=== PATIENT | female | born 1985 | race Caucasian/White ===

== ENCOUNTER 2016-09-08 13:59 | Emergency (ER) | payer BC, OTHER ==
--- NOTE | 2016-09-08 14:57 | ERPHSYRPT ---
- History of Present Illness Time Seen by Provider: 09/08/16 14:49 Historian: patient Exam Limitations: no limitations Patient Subjective Stated Complaint: PT REPORTS LEFT LOWER ABD PAIN BEGINNING FRIDAY-DENIES N/V/D-REPORTS LAST BM THIS MORNING WITH NO DIFFICULTY-DENIES DIFFICULTY WITH URINATION Triage Nursing Assessment: PT PINK WARM ET DRY-ABD SOFT ET TENDER TO PALP-NO REBOUND TENDERNESS NOTED Physician History: The patient is a 31-year-old female with her complaining of left-sided abdominal pain for 2 days. It has become worse. Last night at work it was significantly painful. She denies nausea vomiting or diarrhea. She has a history of constipation with an episode only a few days ago. Her last menstrual period was last week. She consumes alcoholic beverages on an occasional session. Her last consumption was New Year's jeevan. She did not try Tylenol or ibuprofen for the pain. 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 Her past surgical history is significant for cholecystectomy and 2 C-sections. Timing/Duration: day(s) (2) Activities at Onset: none Quality: throbbing Abdominal Pain Onset Location: LLQ, flank Pain Radiation: no radiation Severity of Pain-Max: moderate Severity of Pain-Current: moderate Modifying Factors: Improves With: nothing Associated Symptoms: denies symptoms Previous symptoms: no prior history Allergies/Adverse Reactions: No Known Drug Allergies Allergy (Verified 03/18/16 18:42) Home Medications: Levothyroxine Sodium 50 Mcg [Synthroid 50 Mcg] 50 mcg PO DAILY 04/20/14 [ History] Lisinopril 10 mg [Zestril 10 MG] 20 mg PO DAILY 04/20/14 [History] Vortioxetine Hydrobromide [Brintellix] 5 mg PO DAILY 06/17/15 [History] Lurasidone HCl [Latuda] 40 mg PO DAILY 03/18/16 [History] Hx Tetanus, Diphtheria Vaccination/Date Given: Yes Hx Influenza Vaccination/Date Given: No Hx Pneumococcal Vaccination/Date Given: No Immunizations Up to Date: Yes - Review of Systems Constitutional: No Fever, No Chills Eyes: No Symptoms Ears, Nose, & Throat: No Symptoms Respiratory: No Cough, No Dyspnea Cardiac: No Chest Pain, No Edema, No Syncope Abdominal/Gastrointestinal: Abdominal Pain, Constipation, No Nausea, No Vomiting , No Diarrhea Genitourinary Symptoms: No Dysuria Musculoskeletal: No Back Pain, No Neck Pain Skin: No Rash Neurological: No Dizziness, No Focal Weakness, No Sensory Changes Psychological: No Symptoms Endocrine: No Symptoms Hematologic/Lymphatic: No Symptoms Immunological/Allergic: No Symptoms All Other Systems: Reviewed and Negative - Past Medical History Pertinent Past Medical History: Yes Neurological History: Migraines, Seizures ENT History: No Pertinent History Cardiac History: Hypertension Respiratory History: No Pertinent History Endocrine Medical History: Hypothyroidism Musculoskeletal History: No Pertinent History GI Medical History: No Pertinent History History: No Pertinent History Psycho-Social History: Depression Female Reproductive Disorders: No Pertinent History Other Medical History: attempt suicide x 2 with in pt. stays at [facility]. last seizure 18mos ago related to drug overdose. is not on anti seizure meds - Past Surgical History Past Surgical History: Yes Neuro Surgical History: No Pertinent History Cardiac: No Pertinent History Respiratory: No Pertinent History Gastrointestinal: Cholecystectomy Genitourinary: No Pertinent History Musculoskeletal: No Pertinent History Female Surgical History: Section, Tubal Ligation Other Surgical History: x two - Social History Smoking Status: Current every day smoker How long have you smoked: YRS Exposure to second hand smoke: No Alcohol Use: Socially Drug Use: none Patient Lives Alone: No Significant Family History: no pertinent family hx - Female History Hx Last Menstrual Period: LAST WEEK Hx Now: No - Nursing Vital Signs Nursing Vital Signs: Initial Vital Signs Pulse Rate 62 Respiratory Rate 16 Blood Pressure 128/67 Pain Intensity 3 - Physical Exam General Appearance: no apparent distress, alert Eye Exam: PERRL/EOMI, eyes nml inspection Ears, Nose, Throat Exam: normal ENT inspection, pharynx normal, moist mucous membranes Neck Exam: normal inspection, non-tender, supple, full range of motion Respiratory Exam: normal breath sounds, lungs clear, No respiratory distress Cardiovascular Exam: regular rate/rhythm, normal heart sounds Gastrointestinal/Abdomen Exam: tenderness (left side), No mass Pelvic Exam: not done Rectal Exam: not done Back Exam: normal inspection, normal range of motion, No CVA tenderness, No vertebral tenderness Extremity Exam: normal inspection, normal range of motion, pelvis stable Neurologic Exam: alert, oriented x 3, cooperative, normal mood/affect, nml cerebellar function, sensation nml, No motor deficits Skin Exam: normal color, warm, dry SpO2 Interpretation: normal SpO2: 98 Oxygen Delivery: Room Air - Radiology Exams Abdomen X-ray Interpretation: Interpreted by me, Other (increased fecal load) Ordered Tests: Active Orders 24 hr Category Date Time Status IV Insertion STAT Care 09/08/16 15:01 Active KUB Stat Exams 09/08/16 15:02 Taken CBC W DIFF Stat Lab 09/08/16 15:25 Completed CMP Stat Lab 09/08/16 15:25 Completed HCG QUALITATIVE,SERUM Stat Lab 09/08/16 15:25 Completed LIPASE Stat Lab 09/08/16 15:25 Completed UA W/ MICROSCOPIC Stat Lab 09/08/16 15:25 Completed Medication Summary Discontinued Medications Generic Name Dose Route Start Last Admin Trade Name Freq PRN Reason Stop Dose Admin Sodium Chloride 1,000 mls @ 999 mls/hr 09/08/16 15:01 09/08/16 15:19 Sodium Chloride 0.9% 1000 Ml IV 09/08/16 16:01 999 mls/hr .Q1H1M STA Administration Sodium Chloride Confirm 09/08/16 15:09 Sodium Chloride 0.9% 1000 Ml Administered 09/08/16 15:10 Dose 1,000 mls @ ud .ROUTE .STK-MED ONE Ketorolac Tromethamine 30 mg 09/08/16 15:01 09/08/16 15:19 Toradol 30 Mg Injection IV 09/08/16 15:02 30 mg STAT ONE Administration Ketorolac Tromethamine Confirm 09/08/16 15:09 Toradol 30 Mg Injection Administered 09/08/16 15:10 Dose 30 mg .ROUTE .STK-MED ONE Lab/Rad Data: Laboratory Result Diagrams 09/08/16 15:25 09/08/16 15:25 Laboratory Results 09/08/16 09/08/16 09/08/16 Range/Units 15:25 15:25 15:25 WBC (4.0-10.5) K/mm3 RBC (4.1-5.4) M/mm3 Hgb (12.0-16.0) gm/dl Hct (35-47) % MCV (78-100) fl MCH (26-32) pg MCHC (32-36) g/dl RDW (11.5-14.0) % Plt Count (150-450) K/mm3 MPV (6-9.5) fl Gran % (36.0-66.0) % Lymphocytes % (24.0-44.0) % Monocytes % (0.0-12.0) % Eosinophils % (0.00-5.0) % Basophils % (0.0-0.4) % Basophils # (0-0.4) Sodium 145 (136-145) mEq/L Potassium 3.4 L (3.5-5.1) mEq/L Chloride 107 (98-107) mEq/L Carbon Dioxide 29.7 (21-32) mEq/L Anion Gap 11.3 (5-15) MEQ/L BUN 14 (9-20) mg/dL Creatinine 0.89 (0.55-1.30) mg/dl Estimated GFR > 60 ML/MIN Glucose 76 (70-110) MG/DL Calcium 8.8 (8.5-10.1) mg/dL Total Bilirubin 0.4 (0.2-1.0) mg/dL AST 12 L (15-37) U/L ALT 17 (12-78) U/L Alkaline Phosphatase 86 (46-116) U/L Serum Total Protein 7.2 (6.4-8.2) gm/dL Albumin 3.8 (3.4-5.0) g/dL Lipase 110 (73-393) U/L Serum , Qual NEGATIVE (Negative) Ur Collection Type CLEAN CATCH Urine Color YELLOW (YELLOW) Urine Appearance CLEAR (CLEAR) Urine pH 7.0 (5-6) Ur Specific Waggoner >=1.030 (1.005-1.025) Urine Protein 30 (Negative) Urine Glucose (UA) NEGATIVE (NEGATIVE) mg/dL Urine Ketones NEGATIVE (NEGATIVE) Urine Nitrite NEGATIVE (NEGATIVE) Urine Bilirubin NEGATIVE (NEGATIVE) Urine Urobilinogen 1 (0-1) mg/dL Urine WBC (Auto) NEGATIVE (NEGATIVE) Urine RBC (Auto) SMALL (0-5) Abhishek/ul Urine Microscopic RBC 10-15 (0-2) /HPF Urine Microscopic WBC 0-2 (0-5) /HPF Ur Epithelial Cells FEW (FEW) /HPF Urine Bacteria FEW (NEGATIVE) /HPF Urine Mucus SLIGHT (NEGATIVE) /HPF Specimen Received [id number] 09/08/16 Range/Units 15:25 WBC 8.5 (4.0-10.5) K/mm3 RBC 4.58 (4.1-5.4) M/mm3 Hgb 14.4 (12.0-16.0) gm/dl Hct 43.9 (35-47) % MCV 95.9 (78-100) fl MCH 31.4 (26-32) pg MCHC 32.8 (32-36) g/dl RDW 13.4 (11.5-14.0) % Plt Count 202 (150-450) K/mm3 MPV 10.9 H (6-9.5) fl Gran % 49.5 (36.0-66.0) % Lymphocytes % 38.6 (24.0-44.0) % Monocytes % 8.1 (0.0-12.0) % Eosinophils % 3.3 (0.00-5.0) % Basophils % 0.5 (0.0-0.4) % Basophils # 0.04 (0-0.4) Sodium (136-145) mEq/L Potassium (3.5-5.1) mEq/L Chloride (98-107) mEq/L Carbon Dioxide (21-32) mEq/L Anion Gap (5-15) MEQ/L BUN (9-20) mg/dL Creatinine (0.55-1.30) mg/dl Estimated GFR ML/MIN Glucose (70-110) MG/DL Calcium (8.5-10.1) mg/dL Total Bilirubin (0.2-1.0) mg/dL AST (15-37) U/L ALT (12-78) U/L Alkaline Phosphatase (46-116) U/L Serum Total Protein (6.4-8.2) gm/dL Albumin (3.4-5.0) g/dL Lipase (73-393) U/L Serum , Qual (Negative) Ur Collection Type Urine Color (YELLOW) Urine Appearance (CLEAR) Urine pH (5-6) Ur Specific [place]aggoner (1.005-1.025) Urine Protein (Negative) Urine Glucose (UA) (NEGATIVE) mg/dL Urine Ketones (NEGATIVE) Urine Nitrite (NEGATIVE) Urine Bilirubin (NEGATIVE) Urine Urobilinogen (0-1) mg/dL Urine WBC (Auto) (NEGATIVE) Urine RBC (Auto) (0-5) Abhishek/ul Urine Microscopic RBC (0-2) /HPF Urine Microscopic WBC (0-5) /HPF Ur Epithelial Cells (FEW) /HPF Urine Bacteria (NEGATIVE) /HPF Urine Mucus (NEGATIVE) /HPF Specimen Received - Progress Progress: improved, pain not gone completely Counseled pt/family regarding: lab results, diagnosis, rad results - Departure Time of Disposition: 16:37 Departure Disposition: Home Clinical Impression: Constipation, Hypokalemia Condition: Stable Critical Care Time: No Additional Instructions: Treat your constipation with Milk of Magnesia 2 Tbs at night or 1 bottle of Magnesium Citrate at night. Stay well hydrated.
[2016-09-08] MEDS ORDERED: Sodium Chloride 0.9% 1000 ML 1,000 ML IV STA (15:01)
[2016-09-08] MEDS ORDERED: TORAdol 30 mg Injection IV ONE (15:01)
[2016-09-08] MEDS ORDERED: Sodium Chloride 0.9% 1000 ML 1,000 ML ONE (15:09)
[2016-09-08] MEDS ORDERED: TORAdol 30 mg Injection ONE (15:09)
[2016-09-08 15:30] LABS: BASOPHIL % 0.5 % (0.0-0.4); Eosinophil % 3.3 % (0.00-5.0); Granulocytes % 49.5 % (36.0-66.0); Lymphocytes % 38.6 % (24.0-44.0); Mean Cell Volume 95.9 fl (78-100); Mean Corpuscular Hemoglobin 31.4 pg (26-32); Mean Platelet Volume 10.9 fl (6-9.5); Monocytes % 8.1 % (0.0-12.0); Platelet Count 202 K/mm3 (150-450); Red Blood Count 4.58 M/mm3 (4.1-5.4); Red Cell Distribution Width 13.4 % (11.5-14.0); White Blood Count 8.5 K/mm3 (4.0-10.5)
[2016-09-08 15:53] LABS: ALBUMIN 3.8 g/dL (3.4-5.0); ALKALINE PHOSPHATASE 86 U/L (46-116); ANION GAP 11.3 MEQ/L (5-15); BILIRUBIN,TOTAL 0.4 mg/dL (0.2-1.0); BLOOD UREA NITROGEN 14 mg/dL (9-20); CHLORIDE 107 mEq/L (98-107); Carbon Dioxide 29.7 mEq/L (21-32); Glucose 76 MG/DL (70-110); LIPASE 110 U/L (73-393); Potassium 3.4 mEq/L (3.5-5.1); SGOT/AST 12 U/L (15-37); SGPT/ALT 17 U/L (12-78); SODIUM 145 mEq/L (136-145); Total Protein 7.2 gm/dL (6.4-8.2)
[2016-09-08 16:00] LABS: Bacteria FEW /HPF (NEGATIVE); COMPLETE URINE MICROSCOPIC? YES; Collection Type CLEAN CATCH; Epithelial Cells FEW /HPF (FEW); Mucus SLIGHT /HPF (NEGATIVE); WBC 0-2 /HPF (0-5)
[2016-09-08 16:27] VITALS: BP 128/67; PULSE 62
[2016-09-08] MEDS ORDERED: Klor Con 10 MEQ PO ONE ×2 (16:36→16:39)
[2016-09-08 16:40] VITALS: O2SAT 98
--- NOTE | 2016-09-08 20:26 | XRAY ---
Indication: Left lower quadrant pain. Comparison: June 17, 2015 KUB again nonacute and nonobstructed with interval cholecystectomy. Solid organs and osseous structures unremarkable.
== END 2016-09-08 16:51 | disposition home or self-care (01) ==
LOC: ED 13:59
DX: K59.00 Constipation, unspecified (principal); E87.6 Hypokalemia; R10.32 Left lower quadrant pain
CPT/HCPCS: 36000; 36415; 74000; 80053; 81000; 83690; 84703; 85025; 96360; 96374; 99283; J1885

== ENCOUNTER 2018-09-09 23:13 | Emergency (ER) | payer BC, MEDICAID ==
[2018-09-09] MEDS ORDERED: TORAdol 30 mg Injection IM ONE (23:39)
--- NOTE | 2018-09-09 23:39 | ERPHSYRPT ---
- History of Present Illness Time Seen by Provider: 09/09/18 23:35 Source: patient Exam Limitations: no limitations Patient Subjective Stated Complaint: pt states she has ziggy having increased back pain since yesterday. 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 Triage Nursing Assessment: pt alert and oriented. answers questions approp. pt ambulatory with steady gait noted. respirations nonlabored with lungs cta. Physician History: 33-year-old white female arrives with complaint of low back pain located midline radiating down her leg symptoms since yesterday states it began at her work however she states that she has not had any obvious injury she states the pain is worse today. Pain is worse with movement. She states sometimes it radiates bilaterally around her back to her abdomen no vomiting no diarrhea. Past medical history includes migraines, seizures, hypertension, hypothyroidism , depression,. Past surgical history includes cholecystectomy, , tubal ligation. Social history includes tobacco use and occasional alcohol use patient denies illicit drug use. Timing/Duration: yesterday Severity: moderate Modifying Factors: Improves With: movement, acetaminophen, ibuprofen Associated Symptoms: abdominal pain (vague lower abdominal pain), No nausea, No vomiting, No shortness of breath, No heartburn, No diaphoresis, No cough, No chills, No chest pain, No fever, No headaches, No loss of appetite, No malaise, No rash, No syncope, No seizure, No weakness Allergies/Adverse Reactions: No Known Drug Allergies Allergy (Verified 03/18/16 18:42) Hx Tetanus, Diphtheria Vaccination/Date Given: Yes Hx Influenza Vaccination/Date Given: Yes Hx Pneumococcal Vaccination/Date Given: No Immunizations Up to Date: Yes - Review of Systems Constitutional: No Fever, No Chills Eyes: No Symptoms Ears, Nose, & Throat: No Symptoms Respiratory: No Cough, No Dyspnea Cardiac: No Chest Pain, No Edema, No Syncope Abdominal/Gastrointestinal: Abdominal Pain (mild suprapubic abdominal pain), Other (Mild suprapubic abdominal pain), No Nausea, No Vomiting, No Diarrhea, No Constipation, No Hematemesis, No Hematochezia, No Melena, No Dysphagia Genitourinary Symptoms: No Dysuria Musculoskeletal: Back Pain (Midline back pain radiates to both legs), No Arthralgias, No Neck Pain, No Deformity, No Fall, No Injury, No Joint Redness, No Joint Pain, No Joint Swelling, No Myalgias Skin: No Rash Neurological: No Dizziness, No Focal Weakness, No Sensory Changes Psychological: No Symptoms Endocrine: No Symptoms All Other Systems: Reviewed and Negative - Past Medical History Pertinent Past Medical History: Yes Neurological History: Migraines, Seizures ENT History: No Pertinent History Cardiac History: Hypertension Respiratory History: No Pertinent History Endocrine Medical History: Hypothyroidism Musculoskeletal History: No Pertinent History GI Medical History: No Pertinent History History: No Pertinent History Psycho-Social History: Depression Female Reproductive Disorders: No Pertinent History Other Medical History: attempt suicide x 2 with in pt. stays at [facility]. seizure related to drug overdose. is not on anti seizure meds - Past Surgical History Past Surgical History: Yes Neuro Surgical History: No Pertinent History Cardiac: No Pertinent History Respiratory: No Pertinent History Gastrointestinal: Cholecystectomy Genitourinary: No Pertinent History Musculoskeletal: No Pertinent History Female Surgical History: Section, Tubal Ligation Other Surgical History: x two - Social History Smoking Status: Current every day smoker How long have you smoked: 15yrs Exposure to second hand smoke: No Alcohol Use: Socially Drug Use: none Patient Lives Alone: No Significant Family History: no pertinent family hx - Female History Hx Last Menstrual Period: 2 weeks ago Hx Now: No - Nursing Vital Signs Nursing Vital Signs: Initial Vital Signs Temperature 98.0 F 09/09/18 23:16 Pulse Rate 89 09/09/18 23:16 Respiratory Rate 18 09/09/18 23:16 Blood Pressure 186/101 09/09/18 23:16 O2 Sat by Pulse Oximetry 100 09/09/18 23:16 Pain Scale Pain Intensity [Lower Back] 9 Pain Intensity 9 - Physical Exam General Appearance: alert, other (well developed obese white female, mild distress) Eye Exam: PERRL/EOMI, eyes nml inspection Ears, Nose, Throat Exam: normal ENT inspection, TMs normal, pharynx normal, moist mucous membranes Neck Exam: normal inspection, non-tender, supple, full range of motion Respiratory Exam: normal breath sounds Cardiovascular Exam: regular rate/rhythm, normal heart sounds, normal peripheral pulses Gastrointestinal/Abdomen Exam: soft, normal bowel sounds, No tenderness, No mass Back Exam: other (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 and movement low midline) Extremity Exam: normal inspection, normal range of motion, pelvis stable Neurologic Exam: alert, oriented x 3, cooperative, 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, normal mood/affect, nml cerebellar function, nml station & gait, sensation nml, No motor deficits Skin Exam: normal color, warm, dry, No rash SpO2 Interpretation: normal (100%) SpO2: 100 Oxygen Delivery: Room Air - Course Nursing assessment & vital signs reviewed: Yes Ordered Tests: Active Orders 24 hr Category Date Time Status HCG,QUALITATIVE URINE Stat Lab 09/09/18 23:30 Completed UA W/RFX UR CULTURE Stat Lab 09/09/18 23:30 Received Medication Summary Generic Name Dose Route Start Last Admin Trade Name Freq PRN Reason Stop Dose Admin Trimethoprim/Sulfamethoxazole 1 tab 09/10/18 00:18 Bactrim Ds Tablet PO 09/10/18 00:19 STAT ONE Discontinued Medications Generic Name Dose Route Start Last Admin Trade Name Freq PRN Reason Stop Dose Admin Ketorolac Tromethamine 60 mg 09/09/18 23:39 09/09/18 23:43 Toradol 30 Mg Injection IM 09/09/18 23:40 60 mg STAT ONE Administration Ketorolac Tromethamine Confirm 09/09/18 23:41 Toradol 30 Mg Injection Administered 09/09/18 23:42 Dose 60 mg .ROUTE .[employer] ONE Lab/Rad Data: Laboratory Results 09/09/18 09/09/18 Range/Units 23:30 23:30 Urine Color YELLOW (YELLOW) Urine Appearance CLOUDY (CLEAR) Urine pH 7.0 (5-6) Ur Specific Raymond 1.025 (1.005-1.025) Urine Protein NEGATIVE (Negative) Urine Ketones NEGATIVE (NEGATIVE) Urine Blood SMALL (0-5) Abhishek/ul Urine Nitrite NEGATIVE (NEGATIVE) Urine Bilirubin NEGATIVE (NEGATIVE) Urine Urobilinogen 2 (0-1) mg/dL Ur Leukocyte Esterase MODERATE (NEGATIVE) Urine WBC (Auto) 16-25 (0-5) /HPF Urine RBC (Auto) 3-5 (0-2) /HPF U Epithel Cells (Auto) MANY (FEW) /HPF Urine Bacteria (Auto) FEW (NEGATIVE) /HPF Urine Mucus (Auto) SLIGHT (NEGATIVE) /HPF Urine Yeast (Budding) Rare (NEGATIVE) /HPF Urine Culture Reflexed YES (NO) Urine Glucose NEGATIVE (NEGATIVE) mg/dL Urine HCG, Qual NEGATIVE (Negative) - Progress Progress: improved Progress Note: 09/10/18 00:13 33-year-old white female arrives with complaint of pain in her midline back also some suprapubic pain symptoms for 2 days. Patient with positive urinary tract infection. She has mild tenderness with palpation and movement in the low lumbar region. Will go ahead and write for Naprosyn, Flexeril,. Bactrim. Patient is given a shot of Toradol IM improved not completely pain-free. - Departure Time of Disposition: 00:13 Departure Disposition: Home Clinical Impression: Back pain Qualifiers: Back pain location: low back pain Chronicity: acute Back pain laterality: midline Sciatica presence: unspecified whether sciatica present Qualified Code(s ): M54.5 - Low back pain Lumbar strain Qualifiers: Encounter type: initial encounter Qualified Code(s): S39.012A - Strain of muscle, fascia and tendon of lower back, initial encounter UTI (urinary tract infection) Qualifiers: Urinary tract infection type: site unspecified Hematuria presence: without hematuria Qualified Code(s): N39.0 - Urinary tract infection, site not specified Condition: Fair Critical Care Time: No Referrals: BRIANNE EDMONDS [Primary Care Provider] - Instructions: Low Back Pain (DC) Additional Instructions: Return home. Plenty of fluids. Naprosyn 500 mg orally twice a day as needed for pain. Flexeril 10 mg orally 3 times a day for 5 days. Bactrim DS one orally twice a day for 10 days. Follow-up with your family doctor if symptoms worse, no better in 48 hours, or persist longer than one week. Return for acute distress or for severe symptoms. Prescriptions: Cyclobenzaprine HCl [Flexeril] 10 mg PO TID #15 tablet Naproxen 500 mg [Naprosyn 500 MG] 500 mg PO BIDPRN PRN #10 tablet PRN Reason: Pain Smz/Tmp Ds Tablet [Bactrim Ds Tablet] 1 tab PO BID #20 tablet
[2018-09-09] MEDS ORDERED: TORAdol 30 mg Injection ONE (23:41)
[2018-09-10 00:02] LABS: Appearance CLOUDY (CLEAR); Bacteria FEW /HPF (NEGATIVE); Bilirubin NEGATIVE (NEGATIVE); Blood SMALL Ery/ul (0-5); Epithelial Cells MANY /HPF (FEW); Glucose NEGATIVE (NEGATIVE); Ketones NEGATIVE (NEGATIVE); Leukocyte Esterase MODERATE (NEGATIVE); Mucus SLIGHT /HPF (NEGATIVE); Nitrite NEGATIVE (NEGATIVE); Protein,Urine Dip NEGATIVE (Negative); Specific Gravity 1.025 (1.005-1.025); Urobilinogen 2 mg/dL (0-1)
[2018-09-10] MEDS ORDERED: BACTRIM DS TABLET PO ONE ×2 (00:18→00:21)
[2018-09-10 00:37] VITALS: BP 152/91; PULSE 84; O2SAT 98
== END 2018-09-10 00:37 | disposition home or self-care (01) ==
LOC: ED 23:13
DX: M54.5 Low back pain (principal); S39.012A Strain of muscle, fascia and tendon of lower back, initial encounter; N39.0 Urinary tract infection, site not specified; R10.9 Unspecified abdominal pain; F17.200 Nicotine dependence, unspecified, uncomplicated
CPT/HCPCS: 81001; 84703; 87086; 96372; 99284; J1885; A9270-GY